=== PATIENT | female | born 1940 | race Caucasian/White ===

== ENCOUNTER 2016-12-29 13:07 | Emergency (ER) | payer MEDICARE, BC ==
--- NOTE | ~2016-12-29 | EKG ---
PATIENT: OFELIA LEIGH UNIT #: [id number] Ventricular Rate: 145 BPM Atrial Rate: 133 BPM QRS Duration: 80 ms Q-T Interval: 326 ms QTC Calculation(Bezet): 506 ms Calculated R [place]: -20 degrees Calculated T [place]: 78 degrees Diagnosis Line: Atrial fibrillation with rapid ventricular Diagnosis Line: response with premature ventricular or aberrantly Diagnosis Line: conducted complexes Diagnosis Line: ST depression, consider subendocardial injury or Diagnosis Line: digitalis effect Diagnosis Line: Abnormal ECG Diagnosis Line: When compared with ECG of 10-DEC-2015 16:38, Diagnosis Line: Atrial fibrillation has replaced Sinus rhythm Diagnosis Line: Vent. rate has increased BY 55 BPM Diagnosis Line: ST more depressed Lateral leads Diagnosis Line: T wave inversion less evident in Lateral leads Diagnosis Line: Confirmed by AARON ANDRADE MD ([id number]) on Diagnosis Line: 01/01/2017 8:22:43 AM INTERPRETING MD: LUPE NOVAK
--- NOTE | ~2016-12-29 | CR71 ---
[facility] A Service of [facility] RADIOLOGY TEXT RESULTS PATIENT: OFELIA LEIGH LOCATION: SED : 40 UNIT #: [id number] AGE: [address]: Gabe Everett MD SEX: F ORDER DR: [id number] [address] [address] [id number] MR#: [id number] Acc #: [id number] NAME: OFELIA LEIGH : 1940 SEX: F STUDY DATE/TIME: 12/29/2016 13:25 UNIT: SED ROOM: STUDY DESCRIPTION: CR Chest Single View Attending Physician: Gabe Everett M.D. Ordering Physician: Gabe Everett M.D. Primary Care Physician: Luis Eduardo Rivas M.D. MEDICAL IMAGING REPORT This report is preliminary unless electronic signature is present. EXAM Portable chest x-ray 12/29/2016 HISTORY Chest pain started today. Midsternal to left. FINDINGS AP radiograph of the chest compared to 12/09/2015. Mild cardiac enlargement. Stable. The lung volumes are low. There is no evidence of acute pulmonary disease, pleural effusion or pneumothorax. There is no suspicious nodule. No acute-appearing bony abnormality. Prior orthopedic intervention right humerus. Old healed right humeral fracture. Dictated by... Kiran Patterson M.D. THIS IS AN ELECTRONICALLY VERIFIED REPORT Kiran Patterson M.D. at 12/30/2016 3:16 PM MARANDA/chidi TD: 12/29/2016 16:29 JOB #: [id number] MEDICAL IMAGING REPORT Page 1 of 1
[~2016-12-29 13:07] MED LIST: ACETAMINOPHEN325 MG PO; ACID REDUCER20 MG PO; ALIGN PROBIOTIC PO; ALLERGY RELIEF25 MG PO; ANTIVERT; ATORVASTATIN CA10 MG PO; B-121000 MC1 PO; BACTROBAN15 GM TOP; BISACODYL10 MG/SUP3 PR; CALCIUM 500 +1 EAC3 PO; CARBIDOPA-1 UDTAB.S3 PO; CELEXA; CLOPIDOGREL75 MG PO; COREG6.25 MG PO; CRANBERRY200 MG; CRESTOR; DETROL PO; DITROPAN5 MG; DOMPERIDONE; DOMPERIDONE PO; DOXYCYCLINE HY100 M3 PO; DULCOLAX5 MG PO; DULOXETINE DR PO; EFFEXOR XR150 MG PO; ELMIRON100 MG PO; HYDROCHLOROTHIA25 MG PO; HYDROCODON-ACE1 EAC5 PO; IMDUR; IMDUR-ER60 M1 PO; IMDUR-ER60 M3 PO; ISORDIL; KEFLEX500 MG PO; LANTUS SOLOSTAR3 ML SUBQ; LANTUS100 U/M1; LANTUS100 U/ML SUBQ; LEVEMIR; LEVEMIR100 U/ML; LEVEMIR100 UNITS/ SUBQ; LIPITOR40 MG PO; LISINOPRIL; LISINOPRIL10 MG PO; LISINOPRIL20 MG PO; LO-DOSE ASPIRIN81 M1 PO; LORTAB 7.5-5001 TAB; LOVENOX40 MG/0.4 INJ; MACROBID 100 M100 MG; MACRODANTIN50 MG PO; MILK OF MAGNESIA PO; MOBIC; MULTIVITAMIN1 UDCAP; NEURONTIN; NITROGLYGERIN0.4 MG SL; NORCO 10/3251 TAB DOB; NORVASC PO; NOVOLOG100 U/ML SQ; NOVOLOG100 U/ML SUBQ; PANTOPRAZOLE SO40 MG PO; PAXIL; PHENERGAN; PHENERGAN25 MG PO; PRAVACHOL; PRAVASTATIN SOD40 MG PO; PREDNISONE10 MG PO; PREVACID; PROBIOTIC250 MG PO; PROTONIX40 MG/BLIS PO; PYRIDIUM; RANITIDINE HCL150 M1 PO; SENNA S TABLET1 TAB PO; TRANSDERM-1 PATCH .7; TYLENOL #3 PO; VALTREX500 MG PO; VIT E; ZANTAC150 M1 PO; ZEGERID40 MG/PKT; ZELNORM; ZETIA; ZIAGEN300 M1; ZOFRAN; ZOFRAN PO; [UNRECOGNIZED DRUG - OTHER]
== END 2016-12-29 19:37 ==
LOC: CED 13:07 → SED 13:07
DX: I48.91 Unspecified atrial fibrillation (principal); I25.2 Old myocardial infarction; Z90.710 Acquired absence of both cervix and uterus; I11.0 Hypertensive heart disease with heart failure; I50.9 Heart failure, unspecified; Z88.2 Allergy status to sulfonamides; Z88.5 Allergy status to narcotic agent; Z88.8 Allergy status to other drugs, medicaments and biological substances
CPT/HCPCS: 71010; 93005; 96374; 99291